=== PATIENT | female | born 1960 | race Caucasian/White ===

== ENCOUNTER 2021-09-23 13:46 | Emergency (ER) | payer OTHER, SELFPAY ==
[2021-09-23 14:44] VITALS: BP 154/62; PULSE 58; RESP 18; TEMP 36.2; O2SAT 97; BMI 30.9
== END 2021-09-23 20:49 | disposition left against medical advice (07) ==
PROVIDERS: Emergency Provider Emergency Medicine; PCP Internal Medicine
DX: K59.00 Constipation, unspecified (principal)
CPT/HCPCS: 99281; 99282